=== PATIENT | female | born 1990 | race Caucasian/White ===

== ENCOUNTER 2020-03-14 05:58 | Emergency (ER) | payer SELFPAY ==
[~2020-03-14] VITALS: Ht 172.7 cm; Wt 57.6 kg
[2020-03-14] MEDS ORDERED: NORCO 5-325 TA1 EACH PO (09:05)
== END 2020-03-14 09:45 | disposition home or self-care (01) ==
LOC: ED 05:58
DX: N13.2 Hydronephrosis with renal and ureteral calculous obstruction (principal)
CPT/HCPCS: 74176; 76830; 76856; 80053; 81001; 83690; 84703; 85025; 96361; 99284-25; J1170; J1885; J2405; J2550; J7030

== ENCOUNTER 2021-05-13 16:52 | Emergency (ER) | payer OTHER ==
[~2021-05-13] VITALS: Ht 172.7 cm; Wt 57.6 kg
[~2021-05-13 16:52] MED LIST: NORCO 5-325 TA1 EACH PO
== END 2021-05-13 19:26 | disposition home or self-care (01) ==
LOC: ED 16:52
DX: G43.909 Migraine, unspecified, not intractable, without status migrainosus (principal)
CPT/HCPCS: 80053; 81001; 83735; 84703; 85025; 96374; 99284-25; A9270; J2405; J7030

== ENCOUNTER 2022-04-29 12:20 | Emergency (ER) | payer OTHER ==
[~2022-04-29] VITALS: Ht 172.7 cm; Wt 59.4 kg
== END 2022-04-29 13:06 | disposition home or self-care (01) ==
LOC: ED 12:20
DX: Z77.29 Contact with and (suspected) exposure to other hazardous substances (principal)
CPT/HCPCS: 99282